=== PATIENT | female | born 1965 | race Caucasian/White ===

== ENCOUNTER 2020-09-07 15:25 | Outpatient (REF) | payer OTHER, SELFPAY ==
[2020-09-07 17:12] LABS: Alanine Aminotransferase 46 U/L (0-31); Albumin Level 4.6 g/dL (3.5-5.0); Alkaline Phosphatase 132 U/L (39-117); Aspartate Amino Transferase 42 U/L (5-31); Bilirubin Direct 0.2 mg/dL (0.0-0.5); Bilirubin Total 0.4 mg/dL (0.0-1.0); Iron 95 mcg/dL (30-160); Percent Iron Saturation 32 % (15-50); Total Iron Binding Capacity 298 mcg/dL (228-428); Total Protein 7.8 g/dL (6.5-8.0); Unsaturated Iron Binding 203 ug/dL
[2020-09-07 17:33] LABS: Ferritin 672 ng/mL (10-250)
[2020-09-10 08:20] LABS: Hepatitis B Surface Antigen Negative (Negative)
[2020-09-10 08:23] LABS: HBc Num1 0.07 S/CO (0.00-0.79); Hepatitis B Core Antibody Nonreactive (Nonreactive); ~HepC Num1 0.09 S/CO (0.00-0.79); ~Hepatitis B Surface Antibody NONREACTIVE (Nonreactive); ~Hepatitis C Antibody Nonreactive (Nonreactive)
== END 2020-09-07 15:26 | disposition home or self-care (01) ==
LOC: HO.LAB 15:25
PROVIDERS: PCP Internal Medicine; Visit Provider Internal Medicine
DX: K76.0 Fatty (change of) liver, not elsewhere classified (principal)
CPT/HCPCS: 36415; 80076; 82728; 83540; 86704; 86706; 86803; 87340

== ENCOUNTER 2020-11-09 11:49 | Outpatient (REF) | payer OTHER, SELFPAY ==
[2020-11-09 13:33] LABS: Alanine Aminotransferase 40 U/L (0-31); Albumin Level 4.4 g/dL (3.5-5.0); Alkaline Phosphatase 151 U/L (39-117); Aspartate Amino Transferase 36 U/L (5-31); Bilirubin Direct < 0.2 mg/dL (0.0-0.5); Bilirubin Total 0.3 mg/dL (0.0-1.0); Total Protein 7.7 g/dL (6.5-8.0)
[2020-11-09 13:56] LABS: Ferritin 703 ng/mL (10-250)
== END 2020-11-09 11:50 | disposition home or self-care (01) ==
LOC: HO.LAB 11:49
PROVIDERS: PCP Internal Medicine; Visit Provider Internal Medicine
DX: R79.89 Other specified abnormal findings of blood chemistry (principal)
CPT/HCPCS: 36415; 80076; 81256; 82728

== ENCOUNTER 2022-10-14 07:50 | Outpatient (REF) | payer OTHER, SELFPAY ==
--- NOTE | ~2022-10-14 | US_ITS ---
EXAMINATION: US COMPLETE ABDOMEN WITH LIVER ELASTOGRAPHY CLINICAL INFORMATION: Elevated liver function tests. COMPARISON: None available. TECHNIQUE: Real-time imaging of the abdominal viscera. Noninvasive ultrasound liver fibrosis assessment is performed using Cheryl ElastPQ point quantification shear wave elastography (2D-SWE) with a C5-2 MHz transducer. Multiple elastography samples are obtained. FINDINGS: PANCREAS: Normal. The visualized pancreatic head and body are normal in appearance. The remainder of the pancreas is obscured from visualization by the overlying bowel gas. ABDOMINAL AORTA: The proximal, middle, and distal aortic segments are normal in caliber. INFERIOR VENA CAVA: Visualized portions are normal. LIVER: The liver demonstrates normal size, contour and generally increased echogenicity. No focal lesion or intrahepatic biliary duct dilatation. The right lobe measures 21.9 cm in length. The left lobe measures 16.2 cm in length. Portal flow is towards the liver (hepatopetal). Shear wave liver elastography median stiffness is 1.79 m/s (reference: normal median stiffness is 1.3 m/s or less). IQR/median stiffness to assess sampling precision is 0.21 (reference: good quality data set is IQR/median stiffness of 0.15 or less). GALLBLADDER: Surgically absent. COMMON BILE DUCT: Normal in caliber measuring 0.5 cm in diameter. RIGHT KIDNEY: Normal. No hydronephrosis. No renal calculi or focal parenchymal lesions. The kidney measures 12.0 cm in maximum dimension. LEFT KIDNEY: Normal. No hydronephrosis. No renal calculi or focal parenchymal lesions. The kidney measures 11.2 cm in maximum dimension. SPLEEN: Normal. The spleen measures 12.0 cm in maximum dimension. FREE FLUID: None. US/US abdomen comp w elastography IMPRESSION: 1. There is hepatomegaly. 2. There is generalized increase in hepatic echotexture, consistent with fatty infiltration or hepatocellular disease. Please correlate clinically. No focal hepatic mass or intrahepatic biliary dilatation is seen. 3. Liver elastography: Although measurements are suggestive of compensated advanced chronic liver disease, there is statistical variability of the sampling which decreases accuracy. REFERENCE: Society of Radiologists in Ultrasound Liver Stiffness Thresholds (2020): LIVER STIFFNESS THRESHOLDS: *Liver Stiffness equal or less than 1.3 m/s: High probability of being normal. *Liver Stiffness less than 1.7 m/s: In the absence of other known clinical signs, rules out compensated advanced chronic liver disease. *Liver Stiffness 1.7-2.1 m/s: Suggestive of compensated advanced chronic liver disease but need further test for confirmation. *Liver Stiffness over 2.1 m/s: Rules in compensated advanced chronic liver disease. *Liver Stiffness over 2.4 m/s: Suggestive of clinically significant portal hypertension. QUALITY OF DATA SET: *IQR/Median value equal or less than 0.15 implies a quality data set. *IQR/Median value over 0.15 implies a poor quality data set. SIGNIFICANT CHANGE FROM PRIOR EXAM: Significant change if liver stiffness measurement is 10% or greater from prior exam. OTHER CONSIDERATIONS: The stage of liver fibrosis may be overestimated in the setting of acute hepatitis, liver inflammation, elevated liver function tests, hepatic vascular congestion, obstructive cholestasis, non-fasting state, and infiltrative diseases such as amyloidosis and lymphoma. In some patients with NAFLD, the liver stiffness thresholds for compensated advanced chronic liver disease may be lower. In causes other than viral hepatitis and NAFLD, liver stiffness thresholds are not well established.
[2022-10-14 08:50] LABS: MANUAL DIFF FLAG NO
[2022-10-14 09:06] LABS: Basophils Percent Auto 0.4 % (0-2); Eosinophils Absolute Auto 0.3 X10*3/uL (0.0-0.4); Eosinophils Percent Auto 2.6 % (0-4); Hematocrit 45.5 % (37.0-47.0); Hemoglobin 15.4 g/dl (12.0-16.0); Imm Gran Abs Auto 0.03 X10*3/uL (0.00-0.03); Imm Gran Pct Auto 0.3 % (0.0-0.4); Lymphocytes Percent Auto 31.7 % (20-40); Mean Corpuscular HGB Conc 33.8 g/dl (31.0-35.0); Mean Corpuscular Hemoglobin 29.9 pg (27.0-33.0); Mean Corpuscular Volume 88.3 fL (80.0-98.0); Mean Platelet Volume 9.6 fL (9.4-12.3); Monocytes Absolute Auto 0.6 X10*3/uL (0.1-1.2); Monocytes Percent Auto 5.8 % (2-11); Neutrophils Absolute Auto 5.6 x10*3/uL (2.0-8.3); Neutrophils Percent Auto 59.2 % (45-73); Platelet Count 235 X10*3/uL (160-400); Red Blood Count 5.15 X10*6/uL (4.20-5.50); Red Cell Distribution Width 11.9 % (11.0-16.0); White Blood Count 9.5 X10*3/uL (4.8-10.8)
[2022-10-14 09:11] LABS: Prothrombin Time 11.3 SEC (10.0-13.1)
[2022-10-14 09:47] LABS: Alanine Aminotransferase 38 U/L (0-31); Albumin Level 4.3 g/dL (3.5-5.0); Alkaline Phosphatase 124 U/L (39-117); Aspartate Amino Transferase 34 U/L (5-31); Bilirubin Direct 0.2 mg/dL (0.0-0.5); Bilirubin Total 0.7 mg/dL (0.0-1.0); Iron 128 mcg/dL (30-160); Percent Iron Saturation 48 % (15-50); Total Iron Binding Capacity 269 mcg/dL (228-428); Total Protein 7.2 g/dL (6.5-8.0); Unsaturated Iron Binding 141 ug/dL
[2022-10-14 10:09] LABS: Ferritin 704 ng/mL (10-250)
[2022-10-17 07:54] LABS: Alpha 1 Anti-trypsin 124 mg/dL (83-199)
[2022-10-17 13:53] LABS: Mitochondrial Antibodies NEGATIVE (NEGATIVE)
[2022-10-18 17:14] LABS: Smooth Muscle Antibody <20 U (<20)
[2022-10-20 12:49] LABS: Anti Nuclear Antibody Screen NEGATIVE (NEGATIVE)
[2022-10-22 23:24] LABS: FIB-ALT 34 U/L (6-29); FIB-Alpha-2-Macroglobulin 222 mg/dL (106-279); FIB-Apolipoprotein A1 129 mg/dL (101-198); FIB-GGT 37 U/L (3-70); FIB-Haptoglobin 111 mg/dL (43-212); FIB-Total Bilirubin 0.4 mg/dL (0.2-1.2); Liver Fibrosis Score 0.28; Liver Fibrosis Stage F1; Nec Inflam Act Grade A0-A1; Nec Inflam Act Score 0.17
== END 2022-10-14 07:51 | disposition home or self-care (01) ==
LOC: HO.US 07:50
PROVIDERS: PCP Nurse Practitioner Family; Visit Provider Internal Medicine
DX: R79.89 Other specified abnormal findings of blood chemistry (principal); E83.19 Other disorders of iron metabolism
CPT/HCPCS: 36415; 76705; 76981; 80076; 81596; 82103; 82728; 83540; 85025; 85610; 86015; 86038; 86039; 86255; 86256

== ENCOUNTER 2024-05-25 08:49 | Outpatient (REF) | payer OTHER, SELFPAY ==
--- NOTE | ~2024-05-25 | US_ITS ---
EXAMINATION: US COMPLETE ABDOMEN WITH LIVER ELASTOGRAPHY CLINICAL INFORMATION: Fatty liver COMPARISON: None available. TECHNIQUE: Real-time imaging of the abdominal viscera. Noninvasive ultrasound liver fibrosis assessment is performed using Cheryl ElastPQ point quantification shear wave elastography (pSWE) with a C5-2 MHz transducer. Multiple elastography samples are obtained. FINDINGS: PANCREAS: The visualized pancreatic head and body are normal in appearance. The remainder of the pancreas is obscured from visualization by the overlying bowel gas. ABDOMINAL AORTA: No aortic aneurysm is seen. INFERIOR VENA CAVA: Visualized portions are normal. LIVER: The liver demonstrates normal size, contour and echogenicity. No focal lesion or intrahepatic biliary duct dilatation. The right lobe measures 21.7 cm in length. The left lobe measures 13.4 cm in length. Portal flow is hepatopedal. Shear wave liver elastography median stiffness is 1.30 m/s (reference: normal median stiffness is 1.3 m/s or less). IQR/median stiffness to assess sampling precision is 0.12 (reference: good quality data set is IQR/median stiffness of 0.15 or less). GALLBLADDER: The gallbladder has been surgically removed COMMON BILE DUCT: Normal in caliber measuring 0.5 cm in diameter. RIGHT KIDNEY: No hydronephrosis. No renal calculi or focal parenchymal lesions. The kidney measures 11.7 cm in maximum dimension. LEFT KIDNEY: No hydronephrosis. No renal calculi or focal parenchymal lesions. The kidney measures 10.6 cm in maximum dimension. SPLEEN: Unremarkable. The spleen measures 11.6 cm in maximum dimension. FREE FLUID: None seen. US/US abdomen comp w elastography IMPRESSION: 1. Enlarged liver with slightly coarse echogenic pattern. No focal lesion seen. The gallbladder has been surgically removed. 2. Liver elastography: Median liver stiffness 1.30 suggestive of high probability normal. REFERENCE: Society of Radiologists in Ultrasound Liver Stiffness Thresholds (2020): LIVER STIFFNESS THRESHOLDS: *Liver Stiffness equal or less than 1.3 m/s: High probability of being normal. *Liver Stiffness less than 1.7 m/s: In the absence of other known clinical signs, rules out compensated advanced chronic liver disease. *Liver Stiffness 1.7-2.1 m/s: Suggestive of compensated advanced chronic liver disease but need further test for confirmation. *Liver Stiffness over 2.1 m/s: Rules in compensated advanced chronic liver disease. *Liver Stiffness over 2.4 m/s: Suggestive of clinically significant portal hypertension. QUALITY OF DATA SET: *IQR/Median value equal or less than 0.15 implies a quality data set. *IQR/Median value over 0.15 implies a poor quality data set. SIGNIFICANT CHANGE FROM PRIOR EXAM: Significant change if liver stiffness measurement is 10% or greater from prior exam. OTHER CONSIDERATIONS: The stage of liver fibrosis may be overestimated in the setting of acute hepatitis, liver inflammation, elevated liver function tests, hepatic vascular congestion, obstructive cholestasis, non-fasting state, and infiltrative diseases such as amyloidosis and lymphoma. In some patients with NAFLD, the liver stiffness thresholds for compensated advanced chronic liver disease may be lower. In causes other than viral hepatitis and NAFLD, liver stiffness thresholds are not well established. Electronically signed by: Darrion Valle MD 06/29/2024 04:10 PM [facility]
[2024-05-25 09:53] LABS: MANUAL DIFF FLAG NO
[2024-05-25 10:11] LABS: Basophils Absolute Auto 0.1 X10*3/uL (0.0-0.2); Basophils Percent Auto 0.6 % (0-2); Eosinophils Absolute Auto 0.3 X10*3/uL (0.0-0.4); Eosinophils Percent Auto 2.8 % (0-4); Hematocrit 42.8 % (37.0-47.0); Hemoglobin 14.9 g/dl (12.0-16.0); Imm Gran Abs Auto 0.04 X10*3/uL (0.00-0.03); Imm Gran Pct Auto 0.4 % (0.0-0.4); Lymphocytes Absolute Auto 2.7 X10*3/uL (1.2-4.9); Lymphocytes Percent Auto 25.9 % (20-40); Mean Corpuscular HGB Conc 34.8 g/dl (31.0-35.0); Mean Corpuscular Hemoglobin 30.2 pg (27.0-33.0); Mean Corpuscular Volume 86.6 fL (80.0-98.0); Mean Platelet Volume 10.3 fL (9.4-12.3); Monocytes Absolute Auto 0.5 X10*3/uL (0.1-1.2); Monocytes Percent Auto 5.2 % (2-11); Neutrophils Absolute Auto 6.8 x10*3/uL (2.0-8.3); Neutrophils Percent Auto 65.1 % (45-73); Platelet Count 227 X10*3/uL (160-400); Red Blood Count 4.94 X10*6/uL (4.20-5.50); Red Cell Distribution Width 12.6 % (11.0-16.0); White Blood Count 10.4 X10*3/uL (4.8-10.8)
[2024-05-25 10:56] LABS: Alanine Aminotransferase 43 U/L (0-31); Albumin Level 4.2 g/dL (3.5-5.0); Alkaline Phosphatase 134 U/L (39-117); Aspartate Amino Transferase 51 U/L (5-31); Bilirubin Direct 0.2 mg/dL (0.0-0.5); Bilirubin Total 0.5 mg/dL (0.0-1.0); Iron 124 mcg/dL (30-160); Percent Iron Saturation 41 % (15-50); Total Iron Binding Capacity 304 mcg/dL (228-428); Unsaturated Iron Binding 180 ug/dL
[2024-05-25 11:10] LABS: Ferritin 221 ng/mL (10-250)
--- OUTSIDE RECORDS SUMMARY | 2024-05-25 23:13 | XMS_ITS ---
Author Organization [facility] Address [address] [place] [address] Care Team Providers Care Auto Glass Technician Name Role Phone Jose Hernandez MD Primary Care Provider Kentrell Correa [phone] ALLERGIES Allergen (clinical drug ingredient) Drug/Non Drug Allergy documented on EMR Reaction Allergy Type Onset Date Status Sulfa Unknown Drug Allergy Active some foods,enviromental,elsi e perfumes (uncoded) Unknown Allergy Active Latex latex (uncoded) Unknown Allergy Acti ve REASON FOR VISIT Patient presents today for a fatty liver, elevated LFTs MEDICATIONS Medication SIG (Take, Route, Frequency, Duration) Notes Start Date End Date Status Nasacort Allergy 24HR 55 MCG/ACT 1 spray in each nostril Nasally Once a day for 30 day(s) Active Qvar RediHaler 80 MCG/ACT Inhalation for 60 Active Gabapentin 100 MG Oral for 90 Active Multivitamin Adults Active Albuterol Sulfate 90mcg Active Cholestyramine 4 GM/DOSE 1 scoop Orally 1 scoop QAM for 30 days For IBS-diarrhea 10/02/2011 Active PROBLEMS Problem Type ICD Code Onset Dates Problem Status W/U Status Risk SNOMED Code Notes Problem Colon cancer screening (Z12.11) Active confirmed Colon cancer screening (450049072) Problem 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 Intestinal malabsorption (119939072) VITAL SIGNS BMI 46.67 kg/m2 05/04/2024 Blood pressure systolic 00 mm Hg 05/04/20 24 Blood pressure diastolic 00 mm Hg 024 Height 60 in 05/04/2024 Weight 239 lbs 05/04/2024 Encounters Encounter Location Date Provider Diagnosis [facility] [address] [place] [address] 05/04/2024 Kentrell Dasilva Irritable bowel syndrome with diarrhea K58.0 ; Elevated ferritin level R79.89 ; History of adenomatous polyp of colon Z86.010 ; Encounter for screening for malignant neoplasm of colon Z12.11 ; Family history of colon cancer Z80.0 ; Fatty liver K76.0 ; Colon cancer screening Z12.11 ; Elevated liver function tests R79.89 and Bile salt-induced diarrhea K90.89 ASSESSMENTS Encounter Date Diagnosis Assessment Notes Treatment Notes Treatment Clinical Notes 05/04/2024 Irritable bowel syndrome with diarrhea (ICD-10 - K58.0) 05/04/2024 Elevated ferritin level (ICD-10 - R79.89) Start doing the phlebotomies at the [facility] every 2 to 3 months to keep the Iron levels down 05/04/2024 History of adenomatous polyp of colon (ICD-10 - Z86.010) 05/04/2024 Encounter for screening for malignant neoplasm of colon (ICD-10 - Z12.11) 05/04/2024 Family history of colon cancer (ICD-10 - Z80.0) 05/04/2024 Fatty liver (ICD-10 - K76.0) 05/04/2024 Colon cancer screening (ICD-10 - Z12.11) 05/04/2024 Elevated liver function tests (ICD-10 - R79.89) 05/04/2024 Bile salt-induced diarrhea (ICD-10 - K90.89) PLAN OF TREATMENT Treatment Notes Assessment Notes Elevated ferritin level Start doing the phlebotomies at the [facility] every 2 to 3 months to keep the Iron levels down Pending Test Test Name Order Date LIVER PROFILE 05/04/2024 IRON + IBC (FE) 05/04/2024 CBC w DIFF 05/04/2024 ALPHA-FETOPROTEIN,TUMOR MARKER 4 Ferritin 05/04/2024 Liver Fibrosis Pnl 05/04/2024 US abdomen comp w elastography 4 Future Test Test Name Order Date COLONOSCOPY 05/04/2024 Next Appt Details Provider Name:Kentrell Conteh Dasilva , 09/16/2024 07:30:00 AM, [address] [place] [address] , [place], [place], [phone], Progress Notes * Examination Category Sub-Category Detail Notes General Examination GENERAL APPEARANCE: pleasant , well nourished, well developed, in no acute distress EYES: sclera non-icteric NECK/THYROID: no cervical lymphade nopathy, neck supple HEART: S1, S2 normal LUNGS: clear to auscultatio n bilaterally ABDOMEN: normal bowel sounds, no guarding or rigidity, no hepatosplenomegaly, no masses palpable, soft, nontender, nondistended. NEUROLOGIC: alert and oriented SKIN: nonjaundiced, no spi valeria angiomata. EXTREMITIES: no edema ORAL CAVITY: mucosa moist
--- OUTSIDE RECORDS SUMMARY | 2024-05-25 23:14 | XMS_ITS ---
Author Organization [facility] Address [address] [place] [address] Care Team Providers Care Cognos Bi Developer Name Role Phone Jose Hernandez MD Primary Care Provider Kentrell Correa [phone] REASON FOR VISIT phelbotomy order Encounters Encounter Location Date Provider Diagnosis [facility] [address] [place] [address] 02/13/2023 Kentrell Dasilva Iron excess E83.19 and Elevated liver function tests R79.89 ASSESSMENTS Encounter Date Diagnosis Assessment Notes Treatment Notes Treatment Clinical Notes 02/13/2023 Iron excess (ICD-10 - E83.19) 02/13/2023 Elevated liver function tests (ICD-10 - R79.89) PLAN OF TREATMENT Pending Test Test Name Order Date LIVER PROFILE 02/13/2023 IRON + IBC (FE) 02/13/2023 CBC w DIFF 02/13/2023 Ferritin 02/13/2023 Next Appt Details Provider Name:Kentrell Dasilva , 09/16/2024 07:30:00 AM, [address] [place] [address] , [place], [place], [phone],
--- OUTSIDE RECORDS SUMMARY | 2024-05-25 23:14 | XMS_ITS | Patient Health Record ---
Author Organization [facility] Address [address] [place] [address] Care Team Providers Care Tig Welder Name Role Phone Jose Hernandez MD Primary Care Provider Kentrell Correa Unavailable [phone] ALLERGIES Allergen (clinical drug ingredient) Drug/Non Drug Allergy documented on EMR Reaction Allergy Type Onset Date Status Sulfa Unknown Drug Allergy Active some foods,enviromental,elsi e perfumes (uncoded) Unknown Allergy Active Latex latex (uncoded) Unknown Allergy Acti ve RESULTS Component Value Reference Range Notes Liver Panel (Not yet reviewe d by provider) Interpretation: Performing Lab:[address] [phone] Notes/Report: Bilirubin Total 0.5 0.0-1.0 mg/dL Bilirubin Direct 0.2 0.0-0.5 mg/dL Aspartate Amino Transferase 51 5-31 U/L Slight Hemolysis.Interpret result with caution. Alanine Aminotransferase 43 0-31 U/L Total Protein 8.0 6.5-8.0 g/dL Albumin Level 4.2 3.5-5.0 g/dL Alkaline Phosphatase 134 39-117 U/L Ferritin (Not yet reviewed b y provider) Interpretation: Performing Lab:[address] [phone] Notes/Report: Ferritin 221 10-250 ng/mL Complete Blood Count Auto Di ff Reviewed date:05/25/2024 01:39:43 PM Interpretation: Performing Lab:[facility], [address] [place] [phone] Notes/Report: White Blood Count 10.4 4.8-10.8 X10*3/uL Red Blood Count 4.94 4.20-5.50 X10*6/uL Hemoglobin 14.9 12.0-16.0 g/dl Hematocrit 42.8 37.0-47.0 % Mean Corpuscular Volume 86.6 80.0-98.0 fL Mean Corpuscular Hemoglobin 30.2 27.0-33.0 pg Mean Corpuscular HGB Conc 34.8 31.0-35.0 g/dl Red Cell Distribution Width 12.6 11.0-16.0 % Platelet Count 227 160-400 X10*3/uL Mean Platelet Volume 10.3 9.4-12.3 fL Neutrophils Percent Auto 65.1 45-73 % Imm Gran Pct Auto 0.4 0.0-0.4 % Lymphocytes Percent Auto 25.9 20-40 % Monocytes Percent Auto 5.2 2-11 % Eosinophils Percent Auto 2.8 0-4 % Basophils Percent Auto 0.6 0-2 % NRBC Pct Auto 0.0 0.0-0.2 /100WBC Neutrophils Absolute Auto 6.8 2.0-8.3 x10*3/u L Imm Gran Abs Auto 0.04 0.00-0.03 X10*3/uL Lymphocytes Absolute Auto 2.7 1.2-4.9 X10*3/u L Monocytes Absolute Auto 0.5 0.1-1.2 X10*3/uL Eosinophils Absolute Auto 0.3 0.0-0.4 X10*3/u L Basophils Absolute Auto 0.1 0.0-0.2 X10*3/uL NRBC Abs Auto 0.000 0.0-0.012 X10*3/uL IRON PROFILE Reviewed date:05/25/2024 01:40:25 PM Interpretation: Performing Lab:[facility], [address] [place] [phone] Notes/Report: Iron 124 30-160 mcg/dL Slight Hemolysis.Interpret result with caution. Total Iron Binding Capacity 304 228-428 mcg/d L Percent Iron Saturation 41 15-50 % Unsaturated Iron Binding 180 REASON FOR REFERRAL No Information MEDICATIONS Medication SIG (Take, Route, Frequency, Duration) Notes Start Date End Date Status Nasacort Allergy 24HR 55 MCG/ACT 1 spray in each nostril Nasally Once a day for 30 day(s) Active Albuterol Sulfate 90mcg Active Cholestyramine 4 GM/DOSE 1 scoop Orally 1 scoop QAM for 30 days For IBS-diarrhea 10/02/2011 Active Qvar RediHaler 80 MCG/ACT Inhalation for 60 Active Gabapentin 100 MG Oral for 90 Active Multivitamin Adults Active IMMUNIZATIONS Vaccine Route Administration Date Status Comme nts Influenza Unknown 02/13/2020 Administered SOCIAL HISTORY Sex Assigned At : Social History Observation Description Sex Assigned At Unknown PROBLEMS Problem Type ICD Code Onset Dates Problem Status W/U Status Risk SNOMED Code Notes Problem Colon cancer screening (Z12.11) Active confirmed Colon cancer screening (599584013) Problem Encounter for screening for malignant neoplasm of colon (Z12.11) Active confirmed 732390783 Problem History of adenomatous polyp of colon (Z86.010) Active confirmed 426783601 Problem Irritable bowel syndrome with diarrhea (K58.0) Active confirmed 126358199 Problem Anorexia (R63.0) Active confirmed 33864634 Problem Elevated liver function tests (R79.89) Active confirmed 824392636 Problem Fatty liver (K76.0) Active confirmed Fatty liver (794777411) Problem Family history of colon cancer (Z80.0) Active confirmed 698602423 Problem Colitis (K52.9) Active confirmed Coliti s (53920193) Problem Iron excess (E83.19) Active confirmed 08020305 Problem Iron deficiency anemia due to chronic blood loss (D50.0) Active confirmed 587657676 Problem 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 Intestinal malabsorption (156824289) Problem Elevated ferritin level (R79.89) Active confirmed 162269737 VITAL SIGNS Blood pressure diastolic 00 mm Hg 05/04/2024 Height 60 in 05/04/2024 Blood pressure systolic 00 mm Hg 05/04/2024 Weight 239 lbs 05/04/2024 BMI 46.67 kg/m2 05/04/2024 Encounters Encounter Location Date Provider Diagnosis [facility] [address] [place] [address] 05/04/2024 Kentrell Dasilva Irritable bowel syndrome with [...] diarrhea (ICD-10 - K90.89) PLAN OF TREATMENT Pending Test Test Name Order Date LIVER PROFILE 05/04/2024 LIVER PROFILE 08/26/2022 LIVER PROFILE 09/07/2020 LIVER PROFILE 02/13/2023 IRON + IBC (FE) 02/13/2023 IRON + IBC (FE) 05/04/2024 IRON + IBC (FE) 08/26/2022 FERRITIN 09/15/2020 FERRITIN 09/07/2020 CBC w DIFF 02/13/2023 CBC w DIFF 05/04/2024 CBC w DIFF 08/26/2022 ALPHA-FETOPROTEIN,TUMOR MARKER HEMOCHROMATOSIS (C282Y) 09/15/2020 FLUOR. ANTINUCLEAR AB SCREEN (GORDO) 08/13 US ABDOMEN COMP WITH ELASTOGRAPHY 2022 Prothrombin Time INR 08/26/2022 Liver Panel 05/25/2024 Liver Panel 09/15/2020 Ferritin 05/25/2024 Ferritin 05/04/2024 Ferritin 02/13/2023 Ferritin 08/26/2022 Alpha 1 Anti-trypsin 08/26/2022 Liver Fibrosis Pnl 05/04/2024 Liver Fibrosis Pnl 08/26/2022 Mitochondrial Antibody 08/26/2022 Smooth Muscle Antibody 08/26/2022 US abdomen comp w elastography 3 US abdomen comp w elastography 4 Future Test Test Name Order Date COLONOSCOPY 07/28/2013 COLONOSCOPY 05/19/2019 COLONOSCOPY 05/04/2024 Next Appt Details Provider Name:Kentrell Dasilva , 09/16/2024 07:30:00 AM, [address] [place] [address], [phone], Insurance Providers Payer Name Payer Address Payer Phone Subscriber Number Group Number Insured Name Patient Relationship to Insured Coverage Start Date Coverage End Date [facility] [employer] [facility] [address] [place], [place] [id number] VIC HAMMONDKIANNA Self - patient is the insured MEDICAL (GENERAL) HISTORY Medical History History ICD Code 1 Tubular adenoma removed in 2000--neg colonoscopies in 2003 and 2007, exept for internal hemorrhoids; colonoscopy in 09/2013 neg. except for a hyperplastic polyp; negative colonoscopy in July of 2019 other than a hyperplastic polyp Asthma/Allergies Denies CO,DM,CVA,renal disease Vertigo Diarrhea--EGD in 1999--small HH--no esophagitis/Holcomb's---neg. duodenal biopsy for celiac disease in 1999---improved with cholestyramine 3 nodules on thyroid Antibiotic-associated coliti s in 06/2020 from Augmentin--seen on a CT scan with involvement of at least the transverse colon--- she was on a course of Augmentin for a sinus infection at that time--stool specimens were negative for C. difficile and culture, but were positive for WBCs and Hemoccult testing--she responded well to a course of metronidazole Elevated ferritin level and Fatty liver with just minimal elevation of the liver enzymes and alkaline phosphatase--her liver workup was completely negative including autoimmune studies, viral serologies, and alpha-1 antitrypsin level. Her iron saturation was approximately 50% with a ferritin of about 700, but genetic testing for hemochromatosis was negative for C282Y gene, but homozygous positive for H63D gene. I did not think she had hereditary hemachromatosis and did not recommend a liver biopsy. She was advised to begin donating blood on a regular basis at least every 2 months. The patient reports that she was diagnosed with PTSD and Borderline personality disorder Surgical History Surgery Date(Month/Year) cholecystectomy abdominal wall hernia repair with mesh
--- OUTSIDE RECORDS SUMMARY | 2024-05-25 23:14 | XMS_ITS ---
Author Organization [facility] Address [address] [place] [address] Care Team Providers Care Varsity Baseball Coach Name Role Phone Jose Hernandez MD Primary Care Provider UnavailKentrell Mitchell Unavailable [phone] REASON FOR VISIT ov recall Encounters Encounter Location Date Provider Diagnosis [facility] [address] [place] [address] 02/04/2023 Kentrell Dasilva PLAN OF TREATMENT Next Appt Details Provider Name:Kentrell Dasilva , 09/16/2024 07:30:00 AM, [address] [place] [address] , [place], [place], [phone],
[2024-05-26 13:09] LABS: Alpha Fetoprotein 4.8 ng/mL
[2024-06-04 22:59] LABS: FIB-ALT 31 U/L (6-29); FIB-Alpha-2-Macroglobulin 235 mg/dL (106-279); FIB-Apolipoprotein A1 135 mg/dL (101-198); FIB-GGT 39 U/L (3-70); FIB-Haptoglobin 114 mg/dL (43-212); FIB-Total Bilirubin 0.5 mg/dL (0.2-1.2); Liver Fibrosis Score 0.33; Liver Fibrosis Stage F1-F2; Nec Inflam Act Grade A0; Nec Inflam Act Score 0.16; Reference ID 5258523
== END 2024-05-25 08:50 | disposition home or self-care (01) ==
LOC: HO.US 08:49
PROVIDERS: PCP Nurse Practitioner Family; Visit Provider Internal Medicine
DX: K76.0 Fatty (change of) liver, not elsewhere classified (principal); R79.89 Other specified abnormal findings of blood chemistry
CPT/HCPCS: 36415; 76700; 76981; 80076; 81596; 82105; 82728; 83540; 85025

== ENCOUNTER → 2024-05-25 09:12 | Outpatient (BNV) | payer OTHER, SELFPAY | PROVIDERS: PCP Nurse Practitioner Family; Visit Provider Radiology Diagnostic Radiology | DX: R16.0 Hepatomegaly, not elsewhere classified (principal) | CPT/HCPCS: 76700 ==

== ENCOUNTER 2024-09-16 06:17 | Day surgery (SDC) | payer OTHER, SELFPAY ==
--- OUTSIDE RECORDS SUMMARY | 2024-08-16 11:56 | XMS_ITS | Continuity of Care Document ---
Author Organization [facility] Address [address] [place] [address]- Care Team Providers Care Transfer Specialist Name Role Phone Yolanda Morales NP Primary Care Physician [place] [facility] [place] 07/07/24 - 08/06/[address] [address]- Encounter Type: Triage Allergies, Adverse Reactions, Alerts Substance Criticality Severity Reaction Reaction Severity Status sulfa drugs Active Latex hives Active Other Food Allergy malian cheese Active Peanuts respiratory Active Immunizations Given and Recorded Vaccine Date Status Refusal Reason influenza virus vaccine, inactivated 03/27/24 Torres rded influenza virus vaccine, inactivated 02/27/23 Torres rded influenza virus vaccine, inactivated 04/07/22 Torres rded influenza virus vaccine, inactivated 03/08/21 Torres rded influenza virus vaccine, inactivated 1 03/04/19 Gi dinora influenza virus vaccine, inactivated 2 02/26/18 Re corded influenza virus vaccine, inactivated 3 03/30/17 Gi dinora influenza virus vaccine, inactivated 03/28/16 Give n influenza virus vaccine, inactivated 4 03/24/15 Re corded influenza virus vaccine, inactivated 5 03/15/15 Re corded influenza virus vaccine, inactivated 6 03/28/14 Gi dinora influenza virus vaccine, inactivated 04/14/13 Give n influenza virus vaccine, inactivated 7 04/15/12 Gi dinora influenza virus vaccine, inactivated 8 05/04/10 Gi dinora influenza virus vaccine, inactivated 9 03/01/09 Gi dinora tetanus/diphtheria/pertussis, acel(Tdap) 09/20/23 Recorded tetanus/diphtheria/pertussis, acel(Tdap) 01/12/13 Given SARS-CoV-2(COVID-19)mRNA-LNP vac(ivx002) 03/29/23 Recorded DCEL-NjX-8lVAD 12y+ bivalent booster vax 10 03/08/22 Recorded SARS-CoV-2 (COVID-19) mRNA-1273 vaccine 05/23/21 R ecorded SARS-CoV-2 (COVID-19) mRNA-1273 vaccine 10/01/20 R ecorded SARS-CoV-2 (COVID-19) mRNA-1273 vaccine 09/03/20 R ecorded Influenza Virus Vaccine (oldterm) 02/07/20 Recorde d pneumococcal 23-valent vaccine 05/20/11 Given diphtheria-tetanus toxoids (DT) 12/22/05 Given 1Result Comment: [facility]:[id number] 2Location History: [facility] 3Result Comment: regular dose [facility] [id number] 4Location History: [facility] [address] [place] 5Location History: [facility] Pharmacy 6Admin Note: [facility] 7Admin Note: GIVEN BY ANNEMARIE 8Admin Note: VIS 01/23/09 9Admin Note: VIS 01/23/09 10Result Comment: administered at [facility] Medications Acidophilus oral capsule By Mouth, Daily, 0 Refills, Maintenance, 01/03/21 4:19:00 PM EDT, Partial fill upon patient request if the prescription is for a schedule II opioid drug. Start Date: 01/03/21 Status: Ordered Repeat number: 1 Albuterol (Eqv-ProAir HFA) 90 mcg/inh inhalation aerosol 2 puffs, Inhalation, 4 times a day, PRN NEEDED FOR WHEEZING, # 3 each, 5 Refills, 07/07/24 8:10:00 AM EST, [facility]/pharmacy #[id number], 2 puffs Inhalation 4 times a day,PRN: NEEDED FOR WHEEZING, 152, cm, 07/07/24 7:47:00 EST, Height, 109, kg, 01/03/24 11:55:00 EDT, Dry Weight Start Date: 07/07/24 Status: Ordered Quantity: 3.0 Unit: each Repeat number: 6 Blink Tears 2 drops, Eyes, Both, 4 times a day, 0 Refills, Maintenance, 05/12/22 10:03:00 AM EST, Partial fill upon patient request if the prescription is for a schedule II opioid drug. Start Date: 05/12/22 Status: Ordered Repeat number: 1 cholestyramine 4 gm/9 gm oral powder for reconstitution See Instructions, DISSOLVE 1 SCOOP IN WATER AND DRINK DAILY., # 756 Gm, 3 Refills, Maintenance, 07/07/24 2:39:00 PM EST, [id number], 152, cm, 07/07/24 7:47:00 EST, Height, 109, kg, 01/03/24 11:55:00 EDT, Dry Weight Start Date: 07/07/24 Status: Ordered Quantity: 756.0 Unit: g Repeat number: 1 gabapentin 100 mg oral capsule 1, capsule, By Mouth, 2 times a day, # 180 capsule, Refills 3, Tot. Refills 3, Maintenance, :15:00 AM EST, [id number] 152, cm, 07/07/24 7:47:00 EST, Height, 109, kg, 01/03/24 11:55:00 EDT, Dry Weight Start Date: 07/07/24 Stop Date: 07/02/25 Status: Ordered Quantity: 180.0 Unit: capsule Repeat number: 4 GenTeal Tears Night-Time ophthalmic ointment See Instructions, Eyes, Both Daily, 0 Refills, Maintenance, 05/12/22 10:04:00 AM EST, Partial fill upon patient request if the prescription is for a schedule II opioid drug. Start Date: 05/12/22 Status: Ordered Repeat number: 1 ketoconazole 2% topical cream 1 application, Topically, 2 times a day, for 14 days, # 60 Gm, 2 Refills, Acute 08/18/24 8:39:00 AM EST, 07/07/24 8:39:00 AM EST, Cream, [facility]/pharmacy #[id number], Partial fill upon patient request if the prescription is for a schedule II opioid drug., 1 application Topically 2 times a day,x14 days, 152, cm,07/07/24 7:47:00 EST, Height, 109, kg, 01/03/24 11:55:00 EDT, Dry Weight Start Date: 07/07/24 Stop Date: 08/18/24 Status: Ordered Quantity: 60.0 Unit: g Repeat number: 3 Multivitamin Tablet 1 tablet, By Mouth, Daily, # 30, 0 Refills, Maintenance, 04/20/20 9:24:00 AM EST Start Date: 04/20/20 Status: Ordered Quantity: 30.0 Unit: Repeat number: 1 Nasacort 2 sprays, Nares, Both, 2 times a day, 0 Refills, Maintenance, 05/12/22 10:03:00 AM EST, Partial fill upon patient request if the prescription is for a schedule II opioid drug. Start Date: 05/12/22 Status: Ordered Repeat number: 1 Qvar Redihaler 40 mcg/inh inhalation aerosol 2 inhalation = 80 mcg, Inhalation, 2 times a day, # 10.6 Gm, 5 Refills, Maintenance, 07/07/24 8:14:00 AM EST, Aerosol, [facility]/pharmacy #[id number], Partial fill upon patient request if the prescription is for a schedule II opioid drug., 2 inhalation Inhalation 2 times a day,x90 days, 152, cm, 07/07/24 7:47:00 EST, Height, 109, kg, 01/03/24 11:55:00 EDT, Dry Weight Start Date: 07/07/24 Stop Date: 12/29/25 Status: Ordered Quantity: 10.6 Unit: g Repeat number: 6 Problem List Condition Confirmation Course Effective Dates Status H ealth Status Informant Asthma Confirmed Active Borderline personality disorder Confirmed Active Last pap smear 10/20/19 negative with negative HPV Confirmed Active Chronic back pain Confirmed Active Chronic sinusitis Confirmed Active Hx of adenomatous colonic polyps Confirmed 2000 Active Hyperlipidemia Confirmed Active Irritable Bowel Syndrome (IBS) Confirmed Active Migraine Confirmed Active Post-void dribbling Confirmed Active PTSD (post-traumatic stress disorder) Confirmed Active Prediabetes Confirmed Active Major depression, recurrent Confirmed Active Seasonal allergies Confirmed Active Severe obesity Confirmed Active Thyroid nodules Confirmed Active Social History Social History Type Response Smoking Status Never smoker entered on: 04/09/15 Sex Sex Representation Female (finding) Patient Care team information Care Team Personnel Name: Yolanda Morales NP Position: [facility] PCO Associate Professional Member Role: PCP Address: [address] [place] [address]- Telecom: Name: Mayra Bhardwaj MD Position: [facility] ALARM OPERATOR MD Member Role: Lifetime ALARM OPERATOR Physician Address: [address] [place] [id number]- [place] Telecom: Care Team Related Persons Name: ADAMA OCAMPO Insurance Providers Guarantor name: KIANNA OCAMPO Health Plan Information #: 1 Payer: [employer] Member Number: NA Policy Number: NA Group Number: NA
--- OUTSIDE RECORDS SUMMARY | 2024-08-16 11:56 | XMS_ITS ---
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 Intestinal malabsorption (819196446) VITAL SIGNS Blood pressure systolic 00 mm Hg 05/04/20 24 Blood pressure diastolic 00 mm Hg 024 Height 60 in 05/04/2024 Weight 239 lbs 05/04/2024 BMI 46.67 kg/m2 05/04/2024 Encounters Encounter Location Date Provider Diagnosis [facility] [address] [place] [address] 05/04/2024 Kentrell Dasilva Irritable bowel syndrome with [...] Name:Kentrell Conteh Dasilva , 09/16/2024 07:30:00 AM, [address] [place] [address] , [place], [place], [phone], Progress Notes * Examination Category Sub-Category Detail [...]
--- OUTSIDE RECORDS SUMMARY | 2024-08-16 11:56 | XMS_ITS | Patient Health Record ---
Author Organization [facility] Address [address] [place] [address] Care Team Providers Care City Dispatch Supervisor Name Role Phone Jose Hernandez MD Primary Care Provider Kentrell Correa Unavailable [phone] ALLERGIES Allergen (clinical drug ingredient) Drug/Non Drug Allergy documented on EMR Reaction Allergy Type Onset Date Status Sulfa Unknown Drug Allergy Active some foods,enviromental,elsi e perfumes (uncoded) Unknown Allergy Active Latex latex (uncoded) Unknown Allergy Acti ve RESULTS Component Value Reference Range Notes Complete Blood Count Auto Di ff Reviewed date:05/25/2024 01:39:43 PM Interpretation: Performing Lab:[facility], [address] [place] [phone] Notes/Report: White Blood Count 10.4 4.8-10.8 X10*3/uL [...] X10*3/uL NRBC Abs Auto 0.000 0.0-0.012 X10*3/uL Liver Panel Reviewed date:06/19/2024 02:23:28 PM Interpretation: Performing Lab:[facility], [address] [place] [phone] Notes/Report: Bilirubin Total 0.5 0.0-1.0 mg/dL Bilirubin Direct 0.2 0.0-0.5 mg/dL Aspartate Amino Transferase 51 5-31 U/L Slight Hemolysis.Interpret result with caution. Alanine Aminotransferase 43 0-31 U/L Total Protein 8.0 6.5-8.0 g/dL Albumin Level 4.2 3.5-5.0 g/dL Alkaline Phosphatase 134 39-117 U/L IRON PROFILE Reviewed date:05/25/2024 01:40:25 PM Interpretation: Performing Lab:[facility], [address] [place] [phone] Notes/Report: Iron 124 30-160 mcg/dL Slight Hemolys is.Interpret result with caution. Total Iron Binding Capacity 304 228-428 mcg/d L Percent Iron Saturation 41 15-50 % Unsaturated Iron Binding 180 Ferritin Reviewed date:05/30/2024 10:33:47 PM Interpretation: Performing Lab:[facility], [address] [place] [phone] Notes/Report: Ferritin 221 10-250 ng/mL Alpha Fetoprotein Reviewed date:06/05/2024 01:03:40 PM Interpretation: Performing Lab:[facility], [address] [place] [phone] Notes/Report: Alpha Fetoprotein 4.8 Reference Range: <6.1 The use of AFP as a tumor marker in females is not recommended. This test was performed using the Marsha Gresham chemiluminescent method. Values obtained from different assay methods cannot be used interchangeably. AFP levels, regardless of value, should not be interpreted as absolute evidence of the presence or absence of disease. THIS TEST WAS PERFORMED AT: [facility] [address] [place] [phone] GARY WOODS MD Liver Fibrosis Pnl Reviewed date:06/05/2024 01:03:56 PM Interpretation: Performing Lab:[facility], [address] [place] [phone] Notes/Report: Liver Fibrosis Score 0.33 Liver Fibrosis Stage F1-F2 Liver Fibrosis Interpretation SEE NOTE minimal fibrosis Fibro Test Score (f) Metavir Score f>=0 and f<=0.21 : F0 (no fibrosis) f>0.21 and f<=0.27 : F0-F1 (no fibrosis) f>0.27 and f<=0.31 : F1 (minimal fibrosis) f>0.31 and f<=0.48 : F1-F2 (minimal fibrosis) f>0.48 and f<=0.58 : F2 (moderate fibrosis) f>0.58 and f<=0.72 : F3 (advanced fibrosis) f>0.72 and f<=0.74 : F3-F4 (advanced fibrosis) f>0.74 and f<=1.00 : F4 (severe fibrosis) Nec Inflam Act Score 0.16 Nec Inflam Act Grade A0 Nec Inflam Act Interpretation SEE NOTE no activity ActiTest Score (a) Metavir Score a>=0 and a<=0.17 : A0 (no activity) a>0.17 and a<=0.29 : A0-A1 (no activity) a>0.29 and a<=0.36 : A1 (minimal activity) a>0.36 and a<=0.52 : A1-A2 (minimal activity) a>0.52 and a<=0.60 : A2 (significant activity) a>0.60 and a<=0.62 : A2-A3 (significant activity) a>0.62 and a<=1.00 : A3 (severe activity) ABH-Rwspj-9-Macroglobulin 235 106-279 mg/dL FIB-Haptoglobin 114 43-212 mg/dL FIB-Apolipoprotein A1 135 101-198 mg/dL FIB-Total Bilirubin 0.5 0.2-1.2 mg/dL FIB-GGT 39 3-70 U/L FIB-ALT 31 6-29 U/L Reference ID [id number] Footnote SEE NOTE The reliability of results is dependent on compliance with the preanalytical and analytical conditions recommended by [employer]. The tests have to be deferred for: acute hemolysis, acute hepatitis, acute inflammation, extra hepatic cholestasis. The advice of a specialist should be sought for interpretation in chronic hemolysis and Gilbert's syndrome. The test interpretation is not validated in liver transplant patients. Isolated extreme values of one of the components should lead to caution in interpreting the results. In case of discordance between a biopsy result and a test, it is recommended to seek the advice of a specialist. The causes of these discordances could be due to a flaw of the test or to a flaw in the biopsy: i.e. a liver biopsy has a 33% variability rate for one fibrosis stage. FibroTest is interpretable for chronic hepatitis B and C, alcoholic and non alcoholic steatosis. ActiTest is interpretable for chronic hepatitis B and C. The performance characteristics have been determined by [facility]. It has not been cleared or approved by the U.S. Food and Drug Administration. Performance characteristics refer to the analytical performance of the test. [employer], the associated logo, [employer] and all associated [employer] he are the registered trademarks of [employer]. All third constitution party he - (R) and (TM) - are the property of their respective owners. (C) 6762-5888 [employer]. All rights reserved. THIS TEST WAS PERFORMED AT: [employer] [facility] [address] [place] [address] TATE PUENTES MD,PHD,MERCEDEZ US abdomen comp w elastograp hy Reviewed date:06/29/2024 11:45:48 PM Interpretation: Performing Lab: Notes/Report: [address] [place] [address] Ultrasound Report Signed Patient: Kianna Dunlap MR#: [id number] : 1965 Acct:[id number] Age/Sex: 59 / F ADM Date: 05/25/24 Loc: HO.US Attending Dr: Kentrell Dasilva MD Ordering Physician: Kentrell Dasilva MD Date of Service: 05/25/24 Procedure(s): US abdomen comp w elastography Accession Number(s): [id number] cc: Yolanda Fernandez; Kentrell Dasilva MD EXAMINATION: US COMPLETE ABDOMEN WITH LIVER ELASTOGRAPHY CLINICAL INFORMATION: Fatty liver COMPARISON: None available. TECHNIQUE: Real-time imaging of the abdominal viscera. Noninvasive ultrasound liver fibrosis assessment is performed using Cheryl ElastPQ point quantification shear wave elastography (pSWE) with a C5-2 MHz transducer. Multiple elastography samples are obtained. FINDINGS: PANCREAS: The visualized pancreatic head and body are normal in appearance. The remainder of the pancreas is obscured from visualization by the overlying bowel gas. ABDOMINAL AORTA: No aortic aneurysm is seen. INFERIOR VENA CAVA: Visualized portions are normal. LIVER: The liver demonstrates normal size, contour and echogenicity. No focal lesion or intrahepatic biliary duct dilatation. The right lobe measures 21.7 cm in length. The left lobe measures 13.4 cm in length. Portal flow is hepatopedal. Shear wave liver elastography median stiffness is 1.30 m/s (reference: normal median stiffness is 1.3 m/s or less). IQR/median stiffness to assess sampling precision is 0.12 (reference: good quality data set is IQR/median stiffness of 0.15 or less). GALLBLADDER: The gallbladder has been surgically removed COMMON BILE DUCT: Normal in caliber measuring 0.5 cm in diameter. RIGHT KIDNEY: No hydronephrosis. No renal calculi or focal parenchymal lesions. The kidney measures 11.7 cm in maximum dimension. LEFT KIDNEY: No hydronephrosis. No renal calculi or focal parenchymal lesions. The kidney measures 10.6 cm in maximum dimension. SPLEEN: Unremarkable. The spleen measures 11.6 cm in maximum dimension. FREE FLUID: None seen. US/US abdomen comp w elastography IMPRESSION: 1. Enlarged liver with slightly coarse echogenic pattern. No focal lesion seen. The gallbladder has been surgically removed. 2. Liver elastography: Median liver stiffness 1.30 suggestive of high probability normal. REFERENCE: Society of Radiologists in Ultrasound Liver Stiffness Thresholds (2020): LIVER STIFFNESS THRESHOLDS: *Liver Stiffness equal or less than 1.3 m/s: High probability of being normal. *Liver Stiffness less than 1.7 m/s: In the absence of other known clinical signs, rules out compensated advanced chronic liver disease. *Liver Stiffness 1.7-2.1 m/s: Suggestive of compensated advanced chronic liver disease but need further test for confirmation. *Liver Stiffness over 2.1 m/s: Rules in compensated advanced chronic liver disease. *Liver Stiffness over 2.4 m/s: Suggestive of clinically significant portal hypertension. QUALITY OF DATA SET: *IQR/Median value equal or less than 0.15 implies a quality data set. *IQR/Median value over 0.15 implies a poor quality data set. SIGNIFICANT CHANGE FROM PRIOR EXAM: Significant change if liver stiffness measurement is 10% or greater from prior exam. OTHER CONSIDERATIONS: The stage of liver fibrosis may be overestimated in the setting of acute hepatitis, liver inflammation, elevated liver function tests, hepatic vascular congestion, obstructive cholestasis, non-fasting state, and infiltrative diseases such as amyloidosis and lymphoma. In some patients with NAFLD, the liver stiffness thresholds for compensated advanced chronic liver disease may be lower. In causes other than viral hepatitis and NAFLD, liver stiffness thresholds are not well established. Electronically signed by: Darrion Valle MD 06/29/2024 04:10 PM [facility] Dictated By: Darrion Valle MD Signed By: <Electronically signed by Darrion Valle MD in OV> 06/29/24 1610 DD/ 1 TD/TT: 05/25/24923 [employer] Milling Processor: LISA REASON FOR REFERRAL No Information MEDICATIONS Medication [...] screening (Z12.11) Active confirmed Colon cancer screening (794137794) Problem Encounter for screening for malignant neoplasm of colon (Z12.11) Active confirmed 602974709 Problem History of adenomatous polyp of colon (Z86.010) Active confirmed 138262895 Problem Irritable bowel syndrome with diarrhea (K58.0) Active confirmed 260972889 Problem Anorexia (R63.0) Active confirmed 93088727 Problem Elevated liver function tests (R79.89) Active confirmed 048264689 Problem Fatty liver (K76.0) Active confirmed Fatty liver (675894589) Problem Family history of colon cancer (Z80.0) Active confirmed 635206479 Problem Colitis (K52.9) Active confirmed Coliti s (30487861) Problem Iron excess (E83.19) Active confirmed 34875707 Problem Iron deficiency anemia due to chronic blood loss (D50.0) Active confirmed 268989982 Problem 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 Intestinal malabsorption (595602691) Problem Elevated ferritin level (R79.89) Active confirmed 371037496 VITAL SIGNS Blood pressure diastolic 00 mm Hg 05/04/2024 Height 60 in 05/04/2024 Blood pressure systolic 00 mm Hg 05/04/2024 Weight 239 lbs 05/04/2024 BMI 46.67 kg/m2 05/04/2024 Encounters Encounter Location Date Provider Diagnosis [facility] [address] [place] [phone] 05/04/2024 Kentrell Dasilva Irritable bowel syndrome with diarrhea K58.0 ; Elevated ferritin level R79.89 ; History of adenomatous polyp of colon Z86.010 ; Encounter for screening for malignant neoplasm of colon Z12.11 ; Family history of colon cancer Z80.0 ; Fatty liver K76.0 ; Colon cancer screening Z12.11 ; Elevated liver function tests R79.89 and Bile salt-induced diarrhea K90.89 [facility] [address] [place] [address] 06/29/2024 Kentrell Dasilva ASSESSMENTS Encounter Date Diagnosis Assessment Notes Treatment [...] Test Test Name Order Date LIVER PROFILE 09/07/2020 LIVER PROFILE 08/26/2022 LIVER PROFILE 02/13/2023 LIVER PROFILE 05/04/2024 IRON + IBC (FE) 08/26/2022 IRON + IBC (FE) 02/13/2023 IRON + IBC (FE) 05/04/2024 FERRITIN 09/07/2020 FERRITIN 09/15/2020 CBC w DIFF 08/26/2022 CBC w DIFF 02/13/2023 CBC w DIFF 05/04/2024 ALPHA-FETOPROTEIN,TUMOR MARKER HEMOCHROMATOSIS (C282Y) 09/15/2020 FLUOR. ANTINUCLEAR AB SCREEN (GORDO) 08/13 US ABDOMEN COMP WITH ELASTOGRAPHY 2022 Prothrombin Time INR 08/26/2022 Liver Panel 09/15/2020 Ferritin 02/13/2023 Ferritin 05/04/2024 Ferritin 08/26/2022 Alpha 1 Anti-trypsin 08/26/2022 Liver Fibrosis Pnl 05/04/2024 Liver Fibrosis Pnl 08/26/2022 Mitochondrial Antibody 08/26/2022 Smooth Muscle Antibody 08/26/2022 US abdomen comp w elastography Future Test Test Name Order Date COLONOSCOPY 07/28/2013 COLONOSCOPY 05/19/2019 COLONOSCOPY 05/04/2024 Next Appt Details Provider Name:Kentrell Dasilva , 09/16/2024 07:30:00 AM, [address] [place] [address] , [place], [place], [phone], Insurance Providers Payer Name Payer Address Payer Phone Subscriber Number Group Number Insured Name Patient Relationship to Insured Coverage Start Date Coverage End Date [facility] [address] [place], [place] [id number] KIANNA BRIGHT Self - patient is the insured MEDICAL (GENERAL) HISTORY Medical History History ICD Code 1 Tubular adenoma removed in 2000--neg colonoscopies in 2003 and 2007, exept for internal hemorrhoids; colonoscopy in 09/2013 neg. except for a hyperplastic polyp; negative colonoscopy in July of 2019 other than a hyperplastic polyp Asthma/Allergies Denies MD,DM,CVA,renal disease Vertigo Diarrhea--EGD in 1999--small HH--no esophagitis/Holcomb's---neg. [...]
--- OUTSIDE RECORDS SUMMARY | 2024-08-16 11:56 | XMS_ITS ---
Author Organization [facility] Address [address] [place] [address] Care Team Providers Care Operations Technician Name Role Phone Jose Hernandez MD Primary Care Provider Kentrell Correa Unavailable [phone] REASON FOR VISIT test results 07/05 Encounters Encounter Location Date Provider Diagnosis [facility] [address] [facility] [address] [place] [phone] 06/29/2024 Kentrell Dasilva PLAN OF TREATMENT Next Appt Details Provider Name:Kentrell Dasilva , 09/16/2024 07:30:00 AM, [address] [facility] , [place], [place], [phone],
[2024-09-14 13:50] VITALS: BMI 46.7
--- NOTE | 2024-09-15 09:17 | HO.ANESPROP2 ---
HPI - Anesthesia Eval Consult details Narrative: 59yo F for Colonoscopy BMI: 46 PMFSH Past Medical History Medical History (Updated 09/14/24 @ 13:47 by Maria Alejandra Douglass RN) Borderline personality disorder PTSD (post-traumatic stress disorder) Fatty liver Colitis Thyroid nodule Hiatal hernia Diarrhea Vertigo Asthma Tubular adenoma Surgical History Surgical History (Updated 09/14/24 @ 13:48 by Maria Alejandra Douglass RN) Hx of hernia repair Hx of cholecystectomy History of esophagogastroduodenoscopy (EGD) H/O colonoscopy Meds Allergies Allergy/AdvReac Type Severity Reaction Status Date / Time latex [LATEX] Allergy Unknown RASH Unverified 03/01/20 14:46 oxycodone [From PERCOCET] Allergy Unknown N/V Unverified 03/01/20 14:46 Sulfa (Sulfonamide Allergy Unknown UNKNOWN Unverified 03/01/20 14:46 Antibiotics) [SULFA (SULFONAMIDE ANTIBIOTICS)] Home Medications ?Medication ?Instructions ?Recorded ?Confirmed ?Last Taken ?Type albuterol sulfate 90 mcg/actuation 2 puff inhalation QID PRN wheezing 09/14/24 09/14/24 Unknown History aerosol inhaler beclomethasone dipropionate 40 2 inh inhalation BID 09/14/24 09/14/24 Unknown History mcg/actuation HFA breath activated aerosol (Qvar RediHaler) cholestyramine (with sugar) 4 gram 1 ea PO DAILY 09/14/24 09/14/24 Unknown History oral powder gabapentin 100 mg capsule 100 mg PO TID 09/14/24 09/14/24 Unknown History multivitamin 1 tab PO DAILY 09/14/24 09/14/24 Unknown History triamcinolone acetonide 55 mcg 1 spray intranasal DAILY 09/14/24 09/14/24 Unknown History nasal spray aerosol (Nasacort Allergy) Exam Height,Weight and Vital Signs: Height 5 ft Weight 108.409 kg Assessment and Plan Assessment Anesthesia Assessment: Chart Reviewed
[2024-09-16 06:46] VITALS: BP 138/95; PULSE 84; RESP 14; TEMP 36.8; O2SAT 95; BMI 45.2
[2024-09-16] MEDS: Lactated Ringers 1,000 ML 100 ML IVCONT (06:57)
--- NOTE | 2024-09-16 07:36 | HO.ANESPROP2 ---
FORM[facility]LY [facility] Past Medical History Medical History Borderline personality disorder PTSD (post-traumatic stress disorder) Fatty liver Colitis Thyroid nodule Hiatal hernia Diarrhea Vertigo Asthma Tubular adenoma Functional capacity: independent ambulation Patient : No Family History Family history of problems with anesthesia: No Surgical History Surgical History Hx of tonsillectomy Hx of hernia repair Hx of cholecystectomy History of esophagogastroduodenoscopy (EGD) H/O colonoscopy History of Problems with Anesthesia: No Social History Social History Patient Tobacco Use Status: Former Tobacco user Use of substances other than those prescribed or required for medical reasons: No Have you been hit, kicked, punched, or otherwise hurt by someone within the past year? If so, by whom?: No Are you DNR?: No Advance Directives: No Advance Directives Information Provided: Yes Meds Allergies Allergy/AdvReac Type Severity Reaction Status Date / Time latex [LATEX] Allergy Unknown RASH Verified 09/16/24 06:29 oxycodone [From PERCOCET] Allergy Unknown N/V Verified 09/16/24 06:29 Sulfa (Sulfonamide Allergy Unknown UNKNOWN Verified 09/16/24 06:29 Antibiotics) [SULFA (SULFONAMIDE ANTIBIOTICS)] Active Medications: Current Medications Albuterol Sulfate (Albuterol Sulfate (0.083%) 2.5 Mg/3 Ml Vial.Neb) 2.5 mg INHALE ONCE PRN PRN Reason: Shortness of Breath/Wheezing Lactated Ringer's (Lr) 1,000 mls @ 100 mls/hr IVCONT .Q10H BRI Last Admin: 09/16/24 06:57 Dose: 100 mls/hr Sodium Biphosphate/Sodium Phosphate (Sodium Phosphate,Haskell-Dibasic 133 Ml Enema) 133 ml NH ONCE PRN PRN Reason: Poor Colonoscopy Prep Results Home Medications ?Medication ?Instructions ?Recorded ?Confirmed ?Last Taken ?Type albuterol sulfate 90 mcg/actuation 2 puff inhalation QID PRN wheezing 09/14/24 09/14/24 Unknown History aerosol inhaler beclomethasone dipropionate 40 2 inh inhalation BID 09/14/24 09/14/24 Unknown History mcg/actuation HFA breath activated aerosol (Qvar RediHaler) cholestyramine (with sugar) 4 gram 1 ea PO DAILY 09/14/24 09/14/24 Unknown History oral powder gabapentin 100 mg capsule 100 mg PO TID 09/14/24 09/16/24 09/16/24 History multivitamin 1 tab PO DAILY 09/14/24 09/14/24 Unknown History triamcinolone acetonide 55 mcg 1 spray intranasal DAILY 09/14/24 09/14/24 Unknown History nasal spray aerosol (Nasacort Allergy) Exam Height,Weight and Vital Signs: Height 5 ft Weight 105 kg Last Vital Signs Temp 98.3 F 09/16/24 06:46 Pulse 84 09/16/24 06:46 Resp 14 09/16/24 06:46 BP 138/95 H 09/16/24 06:46 Pulse Ox 95 09/16/24 06:46 O2 Del Method Room Air 09/16/24 06:46 Airway Mallampati Class: III TM Dist: >3cm Neck ROM: Full Heart: RRR CTA Assessment and Plan Assessment Anesthesia Assessment: Anesthesia Plan Discussed and Chart Reviewed Final Anesthetic Review Family History of Problems with Anesthesia: No History of Problems with Anesthesia: No NPO: Yes ASA Class: III Final Preanesthetic Review: Meds/Allgs Chart Reviewed, Consent Obtained/Reviewed and Anes Risks/Benef Reviewed Patient Risk: Intermediate Procedure Risk: Low Anesthetic Plan Anesthetic Plan: MAC: Disposition: Standard PACU
[2024-09-16 08:28] VITALS: BP 93/52; PULSE 80; RESP 16; TEMP 36.2; O2SAT 92
--- NOTE | 2024-09-16 08:32 | PM.OP ---
Brief Operative Note Date of Service: 09/16/24 Pre-op diagnosis: Screening Post-op diagnosis: other (Colon polyp) Procedure: Colonoscopy to the cecum and TI with bx/removal of polyp Surgeon: Kentrell Dasilva MD Anesthesia: MAC Was an [employer] used for this Procedure?: No Estimated blood loss (mL): 2.0 Pathology: other (A. Transverse colon polyp) Condition: stable Disposition: PACU
[2024-09-16 08:40] VITALS: BP 110/69; PULSE 75; RESP 16; O2SAT 92
[2024-09-16 08:55] VITALS: BP 124/69; PULSE 82; RESP 16; O2SAT 94
[2024-09-16 09:10] VITALS: BP 138/90; PULSE 75; RESP 16; O2SAT 96
--- NOTE | 2024-09-16 09:18 | OP_ITS ---
DATE OF SERVICE: 09/16/2024 SURGEON: Kentrell Dasilva MD INDICATIONS: The patient presents for evaluation of personal history of tubular adenoma of the colon, family history of colon cancer, and colorectal cancer screening. Full consent was obtained from her for this, including risks of bleeding and perforation. PREOPERATIVE DIAGNOSIS: POSTOPERATIVE DIAGNOSIS: PROCEDURE PERFORMED: Colonoscopy to cecum and terminal ileum with biopsy removal of polyp. ESTIMATED BLOOD LOSS: COMPLICATIONS: ANESTHESIA: Monitored anesthesia care. ASSISTANTS: SPECIMENS: PREOPERATIVE DIAGNOSES: Colorectal cancer screening, personal history of tubular adenoma of the colon, family history of colon cancer. POSTOPERATIVE DIAGNOSES: Colorectal cancer screening, personal history of tubular adenoma of the colon, family history of colon cancer, small colon polyp, occasional sigmoid diverticulosis, internal hemorrhoids. DESCRIPTION OF PROCEDURE: The patient was placed in the left lateral decubitus position. The digital rectal exam revealed no abnormalities. The Olympus videopediatric colonoscope was entered into the rectum and advanced easily to the cecum. Once in the cecum, I did identify normal-appearing cecal pouch with appendiceal orifice and a normal-appearing ileocecal valve. The terminal ileum was cannulated and appeared normal. The scope was withdrawn back in the colon. The entire cecum and ileocecal valve appeared normal. The scope was slowly withdrawn assessing all mucosal surfaces carefully. Preparation was excellent. In the distal transverse colon, there was a flat approximately 3 mm polyp that was biopsied and completely removed with cold biopsy forceps. I did not visualize any other polyps, colitis, nor angiodysplasia. There was occasional diverticula noted in the sigmoid colon. In the rectum, scope was retroflexed visualizing internal hemorrhoids, but no other pathology. The rectal mucosa appeared normal. Scope was straightened and withdrawn from the patient. She tolerated the procedure well and was returned to recovery area in stable condition. IMPRESSION: 1. Small colon polyp. 2. Diverticulosis. 3. Internal hemorrhoids. PLAN: The results of biopsy will be checked. I would recommend a repeat colonoscopy in 5 years for further screening. She was advised to see me again toward the end of the year for followup of her fatty liver and elevated iron studies. She was advised to continue her current phlebotomy schedule in the blood bank. MD MARY Viramontes/GOLDIE / [phone]
--- NOTE | 2024-09-16 09:49 | HO.POSTANES ---
Post Anesthesia Evaluation Post Anesthesia Evaluation Date of Service: 09/16/24 Vital Signs: Vital Signs Temp Pulse Resp BP Pulse Ox O2 Del Method 09/16/24 09:10 75 16 138/90 H 96 Room Air 09/16/24 08:55 82 16 124/69 94 Room Air 09/16/24 08:40 75 16 110/69 92 Room Air 09/16/24 08:28 97.2 F 80 16 93/52 L 92 Room Air 09/16/24 06:46 98.3 F 84 14 138/95 H 95 Room Air Anesthesia: Monitored Mental Status: Awake Pain Control: Satisfactory Nausea/Vomiting: None Hydration: Adequate Anesthesia-Related Issues: No Anes. Related Issues
== END 2024-09-16 10:47 | disposition home or self-care (01) ==
PROVIDERS: PCP Nurse Practitioner Family; Visit Provider Internal Medicine
PROC: 0DJD8ZZ Inspection of Lower Intestinal Tract, Via Natural or Artificial Opening Endoscopic (ICD-10-PCS; CPT 45378; principal; 2024-09-16 07:30)
DX: Z12.11 Encounter for screening for malignant neoplasm of colon (principal); Z80.0 Family history of malignant neoplasm of digestive organs; Z86.0101 Personal history of adenomatous and serrated colon polyps; K63.5 Polyp of colon; K57.30 Diverticulosis of large intestine without perforation or abscess without bleeding; K64.8 Other hemorrhoids; K58.0 Irritable bowel syndrome with diarrhea; K90.89 Other intestinal malabsorption; K76.0 Fatty (change of) liver, not elsewhere classified; R79.89 Other specified abnormal findings of blood chemistry; J45.909 Unspecified asthma, uncomplicated; Z79.51 Long term (current) use of inhaled steroids; Z79.899 Other long term (current) drug therapy; Z88.2 Allergy status to sulfonamides; Z91.040 Latex allergy status; Z90.49 Acquired absence of other specified parts of digestive tract
CPT/HCPCS: 45380; 88305; J2003; J2704